=== PATIENT | male | born 1970 | race Caucasian/White ===

== ENCOUNTER 2021-12-26 07:00 | Outpatient (CLI) | payer OTHER, SELFPAY ==
--- NOTE | 2021-12-26 07:15 | MR_ITS ---
[address] [address] Phone:?[phone] Fax:?[phone] Referring Physician Information: [address] [address] [facility] [address] Phone:?[phone] Fax:?[phone] Patient:John Avina D.O.B:?1970 Sex:?Male Phone:?[phone] [facility] MRN:?[id number] Exam Date:?12/26/2021 ? EXAM: MRI EXAMINATION OF THE RIGHT KNEE CLINICAL INFORMATION: Right knee pain. History of injury and surgery. Evaluate meniscal tear. TECHNICAL INFORMATION: Axial and sagittal PD and T2 fat saturation. Coronal PD, T2 and STIR images acquired. INTERPRETATION: Bones: Metal susceptibility artifact arises from the distal portion visualized of a femoral intramedullary yuridia. Minimal marrow edema signal involves the periphery of the medial tibial plateau. There is osseous irregularity and spurring of the tibial tubercle. Tiny ossific fragments associated with the distal patellar tendon. No evidence for a fracture or AVN. No other abnormal bone marrow edema pattern is identified. Ligaments and tendons: The medial collateral ligament is intact, without acute sprain or tear. The iliotibial band, fibular collateral ligament, biceps femoris tendon and popliteus tendon all are intact. The anterior cruciate ligament is intact without acute sprain or tear. The posterior cruciate ligament is intact. Extensor Mechanism: The patellar and quadriceps tendons are seen to be intact. There are moderate changes of distal patellar tendinopathy. Poorly defined partial tearing involving the central two thirds of the distal tendon associated with tiny ossific fragments off the tibial tubercle. The medial and lateral retinacula are intact. Knee Joint: A small amount of knee joint fluid may simply be physiologic. No discrete popliteal cyst. There is no discrete loose body seen within the joint. Medial Compartment: There is a somewhat complex appearance of tearing involving the body of the medial meniscus. There is a horizontal appearance of tearing which continues throughout the posterior horn. Tearing continues into the posterior root insertion without root avulsion injury. No displaced flap fragment or parameniscal cyst. There is no focal chondral defect. There is mild chondral thinning involving the weightbearing surfaces of the medial joint compartment. Lateral Compartment: Poorly defined intrasubstance signal within the body and just into the posterior horn lateral meniscus appearing likely related to mucoid degeneration. No discrete tear is identified. No displaced flap fragment or parameniscal cyst. There is no focal chondral defect. No other significant changes of chondromalacia. Patellofemoral articulation: There is no focal chondral defect. No other significant chondromalacia. CONCLUSION: 1. Tearing through the body of the medial meniscus continues throughout the posterior horn and into the posterior root insertion. No root avulsion injury. 2. Mild chondral thinning involves the weightbearing surfaces of the medial joint compartment. 3. Minimal reactive marrow edema signal involves the periphery of the medial tibial plateau. 4. 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 Moderate distal patellar tendinopathy with poorly defined partial tearing through the central two thirds of the tibial insertion. This is associated with tiny ossific fragments off the tibial tubercle. 5. The distal portion is visualized of a femoral intramedullary yuridia. KES Electronically signed on 12/26/2021 1:37:00 PM by Donato Griffith M.D.
== END 2021-12-26 07:01 | disposition home or self-care (01) ==
LOC: MRI 07:01
PROVIDERS: Visit Provider Physician Assistant Surgical
DX: M25.561 Pain in right knee (principal); M23.221 Derangement of posterior horn of medial meniscus due to old tear or injury, right knee
CPT/HCPCS: 73721

== ENCOUNTER 2022-01-29 07:07 | Day surgery (SDC) | payer OTHER, SELFPAY ==
[2022-01-29] VITALS (13 sets, daily range): BP systolic 96–152; BP diastolic 61–103; PULSE 55–86; RESP 16–18; TEMP 36.1–36.6; O2SAT 93–97; BMI 39.6
--- NOTE | 2022-01-29 08:18 | SUR.PREOP ---
Home COVID test negative-confirmed by creative services writer.
[2022-01-29] MEDS: SODIUM CHLORIDE 0.9 % (FLUSH) 10 ML SYRINGE IVF (08:25)
[2022-01-29] MEDS: LACTATED RINGERS 1000 ML 1,000 ML 100 ML IV (08:25)
[2022-01-29] MEDS: CEFAZOLIN 2 GM in 0.9 % SODIUM CHLORIDE Mini-bag 100 ML IVPB (08:40)
--- NOTE | 2022-01-29 09:19 | P.ORPRC_ITS ---
Procedure Note Date of procedure: 01/29/22 Procedure: PREOPERATIVE DIAGNOSIS: 1. Right knee medial meniscus tear POSTOPERATIVE DIAGNOSIS: 1. Right knee medial meniscus tear 2. 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 Right knee arthroscopic partial medial menisectomy 2. Right knee arthroscopic chondroplasty patellofemoral compartment SURGEON: To Solis M.D. COOKER MECHANIC: CANDICE Retana. Of note, an assistant auto center manager was critical for this case to aid in patient positioning, knee manipulation, instrument exchange, and closure. ANESTHESIA: Spinal EBL: 2ml TOURNIQUET: 30 min at 300 torr COMPLICATIONS: None evident INDICATIONS: The patient is a pleasant 52-year-old male who has experienced right knee pain particularly with any twisting or turning. Physical exam was concerning for medial meniscus tear, this was confirmed on MRI. Additionally, attempted nonoperative management has been tried, and failed. Thus, surgery was recommended. FINDINGS: Complex tear posterior horn to midbody medial meniscus. The posterior root was intact. There was grade 2-3 chondromalacia medial femoral condyle weight-bearing portion. There is also grade 4 chondromalacia trochlear groove with loose chondral flaps and inferior pole patella. Lateral meniscus w as intact. Lateral articular cartilage also healthy. ACL and PCL were intact and robust. Large Amina-Schlatter's calcification palpable on physical exam. DESCRIPTION OF PROCEDURE: After a thorough discussion of risks, benefits, and alternatives, the patient was brought to the operating room and placed upon the operating table. Induction of anesthesia was undertaken as previously noted. 3 g IV Ancef was administered within 1 hr of incision preoperatively. Appropriate time-out was performed identifying proper patient, site, and procedure. The right lower extremity was prepped and draped in the appropriate sterile fashion using ChloraPrep. The limb was exsanguinated and tourniquet inflated. Anterolateral and anteromedial portals were established with an 11 blade, and a diagnostic arthroscopy was performed. This identified the findings as noted above. Following the diagnostic arthroscopy, a partial medial menisectomy was performed with the combination of basket forceps and a motorized shaver. Following this, the meniscus was re-probed and found to be stable. Approximately 25 -33 % of the overall meniscus required resection. In addition, the torpedo shaver was utilized for chondroplasty of the loose chondral flaps trochlear groove and the patella inferior pole. At this stage, the shaver was reinserted into the suprapatellar pouch and all remaining meniscal debris was evacuated. Instruments were removed, excess fluid was drained, and closure performed with 4-0 Monocryl with Steri-Strips. Dressings were applied, the tourniquet deflated, and the patient was awoken from anesthesia and transferred to the PACU in stable condition. PLAN: 1. Weightbear as tolerated operative extremity. Crutch / walker ambulation assistance PRN. 2. Ice, acetominophen and/or ibuprofen, and Nocatee for pain as needed. 3. Knee range of motion and quad sets/straight leg raise regularly 4. Follow up with PA visit in 1-2 weeks for a wound check and possibly to initiate physical therapy.
[2022-01-29] MEDS: ROPIVACAINE 0.5% 30 ML 150 MG INJECTION (09:24)
--- NOTE | 2022-01-29 09:38 | W.ANESCHARGE ---
Anesthesia Charges Start Date/Time Anesthesia Start Date: 01/29/22 Anesthesia Start Time: 08:28 Stop Date/Time Anesthesia Stop Date: 01/29/22 Anesthesia Stop Time: 09:35
--- NOTE | 2022-01-29 11:11 | SUR.PHASEII ---
PT came to instruct patient on crutch use.
--- NOTE | 2022-01-29 11:40 | REH.PT ---
PT fitted pt for crutches, instructed in use, loaned for home use. No charge. Leyla Cleveland, PT, DPT [id number]
== END 2022-01-29 11:23 | disposition home or self-care (01) ==
PROVIDERS: Visit Provider Orthopaedic Surgery Sports Medicine
PROC: (CPT 29870; principal; 2022-01-29 08:30)
DX: S83.231A Complex tear of medial meniscus, current injury, right knee, initial encounter (principal); M22.41 Chondromalacia patellae, right knee
CPT/HCPCS: 29881; 01400; 87426; J0690; J2250; J2400; J2704; J2795; J3010; J7120